=== PATIENT | female | born 1950 | race Caucasian/White ===

== ENCOUNTER 2019-07-11 06:27 | Observation (INO) | payer OTHER ==
--- NOTE | 2019-07-10 09:50 | NUR ---
Checked patient's temperature 97.6F via skin probe. Patient denies being out of the country or out of state in the last 14 days. Patient denies being around anyone who has been out of the country or the state in the last 14 days. Patient denies fever, cough or unexplained shortness of breath in the last 14 days. Patient reports admitted to hospital on 07/05/2019 for stroke, chf, and pneumonia and discharged on 05/09/2019. Patient reports she was on the rule out unit for COVID-19. Patient reports she was tested for COVID-19 during hospital stay and was negative.
[2019-07-10 10:37] LABS: BASOPHILS # (AUTO) 0.1 (0.0-0.1); BASOPHILS % 0.7 % (0.0-1.0); EOSINOPHILS # (AUTO) 0.2 (0.0-0.4); HEMATOCRIT 41.8 % (34.2-44.1); HEMOGLOBIN 13.6 g/dL (12.0-16.0); LYMPHOCYTES # (AUTO) 2.6 (1.0-3.2); LYMPHOCYTES % 34.3 % (18.0-39.1); MEAN CORPUSCULAR HEMOGLOBIN 29.4 pg (28-32); MEAN CORPUSCULAR HGB CONC 32.5 g/dL (31-35); MEAN CORPUSCULAR VOLUME 90.5 fL (81-99); MONOCYTES # (AUTO) 0.8 (0.2-0.8); MONOCYTES % 10.6 % (4.4-11.3); NEUTROPHILS % 52.3 % (38.7-80.0); PLATELET COUNT 226 x10e3/uL (140-360); RED BLOOD COUNT 4.62 x10e6/uL (3.6-5.1); RED CELL DISTRIBUTION WIDTH 12.8 % (11.7-14.4)
[2019-07-10 11:04] LABS: INR 1.11
[2019-07-10 11:16] LABS: ALANINE AMINOTRANSFERASE 34 IU/L (0-55); ALBUMIN 3.8 g/dL (3.5-5.0); ALBUMIN/GLOBULIN RATIO 1.1 (0.8-2.0); ALKALINE PHOSPHATASE 50 IU/L (40-150); ANION GAP 11.2 mmol/L (8-16); BLOOD UREA NITROGEN 15 mg/dL (7-26); BUN/CREATININE RATIO 19 (6-25); CALCIUM 9.9 mg/dL (8.4-10.2); CARBON DIOXIDE 29 mmol/L (22-29); CHLORIDE 103 mmol/L (98-107); EST GLOMERULAR FILTRATION RATE > 60 ML/MIN (60-); GLUCOSE 87 mg/dL (74-118); POTASSIUM 4.2 mmol/L (3.5-5.1); SODIUM 139 mmol/L (136-145)
[~2019-07-11] VITALS: Ht 167.6 cm; Wt 75.7 kg
[2019-07-11] VITALS (15 sets, daily range): BP systolic 119–146; BP diastolic 74–104
[~2019-07-11 06:27] MED LIST: ASPIR 8181 MG PO; AZITHROMYCIN500 MG PO; BENICAR20 MG PO; LASIX20 MG PO; LEVOTHYROXINE88 MCG PO; METOPROLOL TART50 MG PO; SIMVASTATIN40 MG PO; VITAMIN D PO
--- OUTSIDE RECORDS SUMMARY | 2019-07-11 06:34 | XMS REPORT ---
Author Author [facility] Address Unknown Phone Unavailable Care Team Providers Care Teachers Assistant Name Role Phone Unavailable Unavailable Payers Payer Name Policy Type Policy Number Effective Date Expiration Date Problems This patient has no known problems. Allergies, Adverse Reactions, Alerts Allergy Name Allergy Type Status Severity Reaction(s) Onset Date Inactive Date Treating Clinician Comments Sulfa (Sulfonamide Antibiotics) DA Active [place] 2016-05-08 00:00:00 codeine DA Active [place] 2016-05-08 00:00:00 Medications This patient has no known medications. Encounters Start Date/Time End Date/Time Encounter Type Admission Type Attending Clinicians Care Facility Care Department Encounter ID 2019-05-08 10:59:00 2019-05-08 10:59:00 Emergency E BL BL 7530 Results Test Description Test Time Test Comments Text Results Atomic Results Result Comments BASIC METABOLIC PANEL 2019-07-07 07:05:00 SODIUM (test code=NA) 140 mmol/L 134-147 POTASSIUM (test code=K) 3.8 mmol/L 3.4-5.0 CHLORIDE (test code=CL) 106 mmol/L 100-108 CARBON DIOXIDE (test code=CO2) 27 mmol/L 21-32 ANION GAP (test code=GAP) 7.0 GAP calc 4.0-15.0 GLUCOSE (test code=GLU) 90 MG/DL 70-110 BLOOD UREA NITROGEN (test code=BUN) 12 MG/DL 7-18 GLOMERULAR FILTRATION RATE (test code=GFR) >=60 max estimate estGFR >60 CREATININE (test code=CREAT) 0.6 MG/DL 0.6-1.0 CALCIUM (test code=CA) 8.8 MG/DL 8.5-10.1 [id number] 07:05:00* Test Item Value Reference Range Comments PHOSPHOROUS (test code=PHOS) 2.2 MG/DL 2.5-4.9 [id number] 07:05:00* Test Item Value Reference Range Comments MAGNESIUM (test code=MAG) 2.0 MG/DL 1.8-2.4 BASIC METABOLIC [id number] 07:01:00* Test Item Value Reference Range Comments SODIUM (test code=NA) 140 mmol/L 134-147 POTASSIUM (test code=K) 3.8 mmol/L 3.4-5.0 CHLORIDE (test code=CL) 106 mmol/L 100-108 CARBON DIOXIDE (test code=CO2) 27 mmol/L 21-32 ANION GAP (test code=GAP) 7.0 GAP calc 4.0-15.0 GLUCOSE (test code=GLU) 90 MG/DL 70-110 BLOOD UREA NITROGEN (test code=BUN) 12 MG/DL 7-18 GLOMERULAR FILTRATION RATE (test code=GFR) estGFR >60 CREATININE (test code=CREAT) MG/DL 0.6-1.0 CALCIUM (test code=CA) 8.8 MG/DL 8.5-10.1 [id number] 07:01:00* Test Item Value Reference Range Comments PHOSPHOROUS (test code=PHOS) MG/DL 2.5-4.9 [id number] 07:01:00* Test Item Value Reference Range Comments MAGNESIUM (test code=MAG) 2.0 MG/DL 1.8-2.4 THYROID STIMULATING [id number] 05:19:00* Test Item Value Reference Range Comments THYROID STIMULATING HORMONE (test code=TSH) 2.150 mcIU/ML 0.340-4.820 - CT ANGIO [id number] 03:08:00 Name: WAYNE GOINS [facility] : 1950 Age/S: 68 / F [address] [address] Unit #: [id number] Loc: [place] [address] Phys: Brandie Lares MD Acct: [id number] Dis Date: Status: ADM IN PHONE #: [phone] Exam Date: 07/06/2019 0230 FAX #: Reason: cva EXAMS: CPT: [id number] CT ANGIO NECK [address]1867 EXAM: - CT ANGIO HEAD, - CT ANGIO NECK LOCATION: H61 CLINICAL HISTORY/INDICATION: CVA. TECHNIQUE: Helical CT acquisition of the upper chest, neck and head were obtained utilizing the CTA protocol. 3D MIPS image series were created on an independent workstation using maximum intensity projection technique. This examination was performed according to our departmental dose optimization program, which includes automated exposure control, adjustment of the mA and/or kV according to patient size, and/or use of iterative reconstruction technique. COMPARISON: Carotid artery ultrasound 07/05/2019. Brain MRI 07/05/2019. FINDINGS: CTA NECK: Any reported ICA stenosis directly references the distal internal carotid artery diameter as the denominator for stenosis measurement (NASCET criteria). Aortic Arch: Three-vessel aortic arch with patent origins of the great vessels. Right carotid artery: The right common carotid artery is unremarkable. There is mild calcified and noncalcified plaque in the proximal right ICA at the origin with approximately 25% stenosis. Left carotid artery: The left common carotid artery is unremarkable. There is mild calcified and noncalcified plaque in the proximal ICA at the origin without significant stenosis. Vertebral arteries: The bilateral vertebral arteries are patent without significant narrowing. Nonv ascular findings: There are bilateral pleural effusions present. There is bilateral pulmonary edema. Mild paraseptal emphysema and bilateral lung apices. PAGE 1 Signed Report (CONT INUED) Name: WAYNE GOINS [facility] : 1950 Age/S: 68 / F [id number] [address] Unit #: [id number] Loc: [place] [address] Phys: Brandie Johnson MD Acct: [id number] Dis Date: Status: ADM IN [facility] NE #: [phone] Exam Date: 07/06/2019 0230 FAX #: Reason: cva EXAM S: CPT: [id number] CT ANG IO NECK [address]242 <Continued> CTA HEAD: Internal carotid arteries: The bilateral internal carotid arteries are patent without evidence of stenosis, dissection or aneurysm. Middle cerebral arteries: The bilateral M1 and M2 segments are patent without evidence of stenosis, vasospasm or aneurysm. Anterior cerebral arteries: The bilateral anterior cerebral arteries are patent without evidence of stenosis, vasospasm or aneurysm. Vertebral and basilar arteries: The bilateral V4 segments, vert ebrobasilar confluence and basilar artery are patent without significant n arrowing. The bilateral posterior inferior cerebellar arteries are patent . Posterior cerebral arteries: The bilateral posterior cerebral ar teries are patent without significant stenosis, vasospasm or aneurysm. Major dural venous sinuses:Patent without thrombus. NON VASCULAR FINDINGS: There is mild right ethmoid sinus and right maxillary s inus mucosal thickening. IMPRESSION: 1. No intracranial large vessel occlusion or stenosis. 2. Mild atheroscle rotic disease in the bilateral proximal ICA at the origins with mild nitesh nosis on the right (25%) and no significant stenosis on the left. 3. No vertebral or basilar artery plaque or stenosis. 4. Pulmonary e nupur and bilateral pleural effusions. at 0308 Reported and signed by : Guero Shukla M.D. CC: Brandie Lares MD; Suad Winslow MD; Robert Manzanares MD Technologist:Rosalinda Umana, RT(R)(CT); CTDI: DLP: Trnscb Date/Time: 07/06/2019 (0308) t.SDR.TH15 Orig Print D/T: S: 07/06/2019 (310) PAGE 2 Signed Report - CT ANGIO [id number] 03:08:00 Name: WAYNE GOINS [facility] : 1950 Age/S: 68 / F [address] [address] Unit #: [id number] Loc: [place] [address] Phys: Brandie Lares MD Acct: [id number] Dis Date: Status: ADM IN PHONE #: [phone] Exam Date: 07/06/2019 0215 FAX #: Reason: cva EXAMS: CPT: [id number] CT ANGIO HEAD [address]25 EXAM: - CT ANGIO HEAD, - CT ANGIO NECK LOCATION: H61 CLINICAL HISTORY/INDICATION: CVA. TECHNIQUE: Helical CT acquisition of the upper chest, neck and head were obtained utilizing the CTA protocol. 3D MIPS image series were created on an independent workstation using maximum intensity projection technique. This examination was performed according to our departmental dose optimization program, which includes automated exposure control, adjustment of the mA and/or kV according to patient size, and/or use of iterative reconstruction technique. COMPARISON: Carotid artery ultrasound 07/05/2019. Brain MRI 07/05/2019. FINDINGS: CTA NECK: Any reported ICA stenosis directly references the distal internal carotid artery diameter as the denominator for sten osis measurement (NASCET criteria). Aortic Arch: Three-vesse l aortic arch with patent origins of the great vessels. Righ t carotid artery: The right common carotid artery is unremarkable. There is mild calcified and noncalcified plaque in the proximal right ICA at the origin with approximately 25% stenosis. Left carotid artery: The left common carotid artery is unremarkable. There is mild tavia cified and noncalcified plaque in the proximal ICA at the origin without s ignificant stenosis. Vertebral arteries: The bilateral verte bral arteries are patent without significant narrowing. Nonv ascular findings: There are bilateral pleural effusions present. There is bilateral pulmonary edema. Mild paraseptal emphysema and bilateral lung apices. PAGE 1 Signed Report (CONT INUED) Name: WAYNE GOINS [facility] : 1950 Age/S: 68 / F [address] [address] Unit #: [id number] Loc: [place] [address] Phys: Brandie Johnson MD Acct: [id number] Dis Date: Status: ADM IN [facility] NE #: [phone] Exam Date: 07/06/2019 0215 FAX #: Reason: cva EXAM S: CPT: [id number] CT ANG IO HEAD [address] <Continued> CTA HEAD: Internal carotid arteries: The bilateral internal carotid arteries are patent without evidence of stenosis, dissection or aneurysm. Middle cerebral arteries: The bilateral M1 and M2 segments are patent without evidence of stenosis, vasospasm or aneurysm. Anterior cerebral arteries: The bilateral anterior cerebral arteries are patent without evidence of stenosis, vasospasm or aneurysm. Vertebral and basilar arteries: The bilateral V4 segments, vert ebrobasilar confluence and basilar artery are patent without significant n arrowing. The bilateral posterior inferior cerebellar arteries are patent . Posterior cerebral arteries: The bilateral posterior cerebral ar teries are patent without significant stenosis, vasospasm or aneurysm. Major dural venous sinuses:Patent without thrombus. NON VASCULAR FINDINGS: There is mild right ethmoid sinus and right maxillary s inus mucosal thickening. IMPRESSION: 1. No intracranial large vessel occlusion or stenosis. 2. Mild atheroscle rotic disease in the bilateral proximal ICA at the origins with mild nitesh nosis on the right (25%) and no significant stenosis on the left. 3. No vertebral or basilar artery plaque or stenosis. 4. Pulmonary e nupur and bilateral pleural effusions. at 0308 Reported and signed by : Guero Shukla M.D. CC: Brandie Larse MD; Suad Winslow MD; Robert Manzanares MD Technologist:Rosalinda Umana, RT(R)(CT); CTDI: DLP: Trnscb Date/Time: 07/06/2019 (0308) t.RAJR.TH15 Orig Print D/T: S: 07/06/2019 (031) PAGE 2 Signed Report Novel Coronavirus 20:56:00* Test Item Value Reference Range Comments Novel Coronavirus 2019 Inhouse (test code=LSEAQ96NA) Negative Negative Positive results are indicative of the presence oiSMXR-HxB-0 RNA, clinical correlation with patient historyand other diagnostic information is necessary to determinepatient infection status. Positive results do not rule outbacterial infection or co-infection with other viruses. Negative results do not preclude SARS-CoV-2 infection andshould not be used as the sole basis for patient managementdecisions. Negative results must be combined with otherclinical observations, patient history, and epidemiologicalinformation. Detection of SARS-CoV-2 RNA may be affected bysample collection methods, storage conditions, and/or stageof infection. Viral RNA mutations, vaccinations, antiviraltherapeutics, antibiotics, chemotherapeutic orimmunosuppressant drugs have not been evaluated for effectson detection. Results are for the identification of SARS-CoV-2 RNA usingthe [employer] M2000 System under the FDA Emergency UseAuthorization. The testing is performed by personneltrained in the procedures for the Anderson M2000 moleculardiagnostic SARS-CoV-2 assay in vitro. Testing Criteria: OtherOther: cough, unexplained hypoxiaNovel Coronavirus 20182019-07-05 20:56:00* Test Item Value Reference Range Comments Novel Coronavirus 2019 Inhouse (test code=[id number]) Negative Negative Positive results are indicative of the presence zgZCBN-WlX-6 RNA, clinical correlation with patient historyand other diagnostic information is necessary to determinepatient infection status. Positive results do not rule outbacterial infection or co-infection with other viruses. Negative results do not preclude SARS-CoV-2 infection andshould not be used as the sole basis for patient managementdecisions. Negative results must be combined with otherclinical observations, patient history, and epidemiologicalinformation. Detection of SARS-CoV-2 RNA may be affected bysample collection methods, storage conditions, and/or stageof infection. Viral RNA mutations, vaccinations, antiviraltherapeutics, antibiotics, chemotherapeutic orimmunosuppressant drugs have not been evaluated for effectson detection. Results are for the identification of SARS-CoV-2 RNA usingthe [employer]000 System under the FDA Emergency UseAuthorization. The testing is performed by personneltrained in the procedures for the [employer] M2000 moleculardiagnostic SARS-CoV-2 assay in vitro. Testing Criteria: OtherOther: cough, unexplained hypoxia- DUP EXTRACRANIAL ANA 2019-07-05 18:54:00 Name: WAYNE GOINS [facility] : 1950 Age/S: 68 / F [address] [address] Unit #: [id number] Loc: [place] [address] Phys: Brandie Lares MD Acct: [id number] Dis Date: Status: ADM IN PHONE #: [phone] Exam Date: 07/05/2019 1820 FAX #: Reason: BILATERAL CAROTIDS EXAMS: CPT: [id number] DUP EXTRACRANIAL ANA 62714 Carotid Doppler ultrasound History: BILATERAL CAROTIDS Comparison: None at this time Location: R16 Carotid Doppler ultrasound with color flow was performed of the common carotid and internal carotid and external carotid arteries. Measurement of the distal internal carotid artery diameter is used as the denominator for stenosis measurement, if direct measurements were obtained. The internal carotid peak systolic velocity on the right is 98 cm/s. The internal carotid peak systolic velocity on the left is 83 cm/s. The internal carotid to common carotid artery peak systolic velocity ratio on the right is 1.5. The internal carotid to common carotid artery peak systolic velocity ratio on the left is 1.0. There is antegrade flow in both vertebral arteries. Impression: According to the internal carotid artery peak systolic velocities and the internal carotid to common carotid artery peak systolic velocity ratios, there is no hemodynamically significant stenosis. at 1854 Reported and signed by: Demetris Umana M.D. CC: Brandie Lares MD; Suad Winslow MD; Robert Manzanares MD Technologist: Katelynn Tanner Trnscb Date/Time: 07/05/2019 (1853) RominaPMT PAGE 1 Signed Report Name: WAYNE GOINS [facility] : 1950 Age/S: 68 / F [address] [address] Unit #: [id number] Loc: [place] [address] Phys: Jeremi Lares MD Acct: [id number] Dis Date: Status: ADM IN PHONE #: [phone] Exam Date: 07/05/2019 1820 FAX #: Reason: BILATERAL CAROTIDS EXAMS: CPT: [id number] DUP EXTRA CRANIAL ANA 86444 <Continued> Orig Print D/T: S: 07/05/2019 (1856) Probe: PAGE 2 Signed Report - MRI BRAIN W/O [id number] 16:23:00 FAX: Brandie Ware MD Camps: PM St: ADM FAX: Suad Watts [phone] FAX: Robert Manzanares MD [phone] Name: WAYNE GOINS [facility] : 1950 Age/S: 68/F [address] [address] Unit #: [id number] Loc: [address] [place] [address] Phys: Brandie Hardy MD Acct: [id number] Dis Date: Status: ADM IN PH ONE #: [phone] Exam Date: 07/05/2019 1600 FA X #: Reason: CVA vs TIA EXAMS: CPT: [id number] MRI BRAIN W/O CONTRAST 62976 R16 - MRI BRAIN W/O CONTRAST HISTORY: CVA vs TIA TECHNIQUE: Multiplanar multisequence MR images of the brain were obtained without intravenous contrast. COMPARISON: Head CT 07/05/2019 FINDINGS: Postoperative restricted diffusion associated wi th FLAIR hyperintensity and multiple vascular territories of the right cerebellar hemisphere. There is no mass, mass effect or abnormal extra- axial fluid collection. The ventricles are normal in size, shape, and position. There are normal signal voids in the larger intrac ranial vessels. The paranasal sinuses and mastoid air cells are pr edominantly clear. The marrow signal pattern is within normal limits. 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 Consider further evaluation with h ead and neck CTA. Findings reported to nurse Veronique Flower on 06/24 4:[address] Quan Austin. *FOR INTERNAL CODING PURPOSES ONLY RESULT CODE: CVR at 16 23 Reported and signed by: Quan Austin M.D. PAGE 1 Signed Report (CONTINUED) FAX: Brandie Ware MD Camps: PM St: ADM FAX: Suad Watts [phone] FAX: Robert Manzanares MD [phone] - Name: WAYNE GOINS [facility] : 1950 Age/S: 68/F [address] [address] Unit #: [id number] Loc: [address] [place] [address] Phys: Reynaldo Lares MD Acct: [id number] Dis Date: Status: ADM IN PHONE #: Exam Date: 07/05/2019 1600 FAX #: Reason: CVA vs TIA EXAMS: CPT: [id number] MRI BRAIN W/O CONTRAST 24712 <Continued> CC: Brandie Lares MD; Suad Winslow MD; Robert Manzanares MD Technologist: Boston Mujica RT(R)(MR) Transcribed Date/Time/By: 07/05/2019 (7380) :[email or web address] Orig Print D/T: S: 07/05/2019 (7743) PAGE 2 Signed Report UA RFLX MICR CULT IF INDICATED 2019-07-05 10:56:00* Test Item Value Reference Range Comments UA COLOR (test code=COLU) YELLOW discript YEL/STRAW UA APPEARANCE (test code=APPU) CLEAR discript CLEAR UA GLUCOSE DIPSTICK (test code=DGLUU) NEGATIVE mg/dL NEG UA BILIRUBIN DIPSTICK (test code=BILU) NEGATIVE mg/dL NEG UA KETONE DIPSTICK (test code=KETU) NEGATIVE mg/dL NEG UA SPECIFIC GRAVITY (test code=SGU) 1.020 SG 1.005-1.030 UA BLOOD DIPSTICK (test code=IVETTE) NEGATIVE mg/DL NEG UA PH DIPSTICK (test code=YOGI) 6.0 pH UNITS 5.0-7.0 UA PROTEIN DIPSTICK (test code=PROU) NEGATIVE mg/dL NEG UA UROBILINIOGEN DIPSTICK (test code=URO) 0.2 mg/dL <2.0 UA NITRITE DIPSTICK (test code=NAVJOT) NEGATIVE SCREEN NEG UA LEUKOCYTE ESTERASE DIPSTICK (test code=LEUU) NEGATIVE Leuk/mcL NEGATIVE SOURCE OF URINE: CLEAN CATCHIndication for culture: Delirium-if no other src UA RFLX MICR CULT IF [id number] 10:55:00* Test Item Value Reference Range Comments UA COLOR (test code=COLU) YELLOW discript YEL/STRAW UA APPEARANCE (test code=APPU) CLEAR discript CLEAR UA GLUCOSE DIPSTICK (test code=DGLUU) NEGATIVE mg/dL NEG UA BILIRUBIN DIPSTICK (test code=BILU) NEGATIVE mg/dL NEG UA KETONE DIPSTICK (test code=KETU) NEGATIVE mg/dL NEG UA SPECIFIC GRAVITY (test code=SGU) 1.020 SG 1.005-1.030 UA BLOOD DIPSTICK (test code=IVETTE) NEGATIVE mg/DL NEG UA PH DIPSTICK (test code=YOGI) 6.0 pH UNITS 5.0-7.0 UA PROTEIN DIPSTICK (test code=PROU) NEGATIVE mg/dL NEG UA UROBILINIOGEN DIPSTICK (test code=URO) 0.2 mg/dL <2.0 UA NITRITE DIPSTICK (test code=NAVJOT) NEGATIVE SCREEN NEG UA LEUKOCYTE ESTERASE DIPSTICK (test code=LEUU) NEGATIVE Leuk/mcL NEGATIVE UA CULTURE NEEDED? (test code=UACULT) Criteria Culture CHK SOURCE OF URINE: CLEAN CATCHIndication for culture: Delirium-if no other src LIPID PROFILE (CORONARY RISK)2019-07-05 07:03:00* Test Item Value Reference Range Comments TRIGLYCERIDES (test code=TRIG) 79 MG/DL 0-150 CHOLESTEROL (test code=CHOL) 182 MG/DL 133-200 CHOLESTEROL/HDL RATIO (test code=CHOLHDL) 3.08 RATIO >0 HDL CHOLESTEROL (test code=HDL) 59 MG/DL 40-59 NON-HDL CHOLESTEROL (test code=NHDL) 123 mg/dL <130 LIPOPROTEIN LDL (test code=LDL) 114 MG/DL 0-129 LDL/HDL (test code=LDL/HDL) 1.93 Ratio 1.48-3.22 Avg HEPATIC FUNCTION [id number] 07:03:00* Test Item Value Reference Range Comments TOTAL PROTEIN (test code=PROT) 6.9 G/DL 6.4-8.2 ALBUMIN (test code=ALB) 3.4 G/DL 3.4-5.0 BILIRUBIN TOTAL (test code=BILT) 0.70 MG/DL 0.2-1.2 BILIRUBIN DIRECT (test code=BILD) 0.20 MG/DL 0.00-0.30 BILIRUBIN INDIRECT (test code=BILIND) 0.50 MG/DL 0.2-1.2 SGOT/AST (test code=AST) 77 Unit/L 15-37 SGPT/ALT (test code=ALT) 112 Unit/L 12-78 ALKALINE PHOSPHATASE TOTAL (test code=ALKP) 52 Unit/L 45-117 NT PRO-BRAIN NATRIURETIC [id number] 07:03:00* Test Item Value Reference Range Comments NT PRO-BRAIN NATRIURETIC PEPTI (test code=PROBNP) 1503 PG/ML 0-100 GLYCOSYLATED HEMOGLOBIN [id number] 07:03:00* Test Item Value Reference Range Comments GLYCOSYLATED HEMOGLOBIN (HA1C) (test code=GLYHGB) 5.5 % A1C 0.0-5.7 ESTIMATED AVERAGE GLUCOSE (test code=EAG) 111 MG/DLest - CTA CHEST FOR [id number] 02:30:00 Name: WAYNE GOINS [facility] : 1950 Age/S: 68 / F [address] [address] Unit #: [id number] Loc: [place] [address] Phys: Robert Manzanares MD Acct: [id number] Dis Date: Status: ADM IN PHONE #: [phone] Exam Date: 07/05/2019 020 FAX #: Reason: HYPOXIA, HX OF AFIB, EVAL FOR PE EXAMS: CPT: [id number] [place] [address] Exam: CT thorax PE protocol. Location: H 12 History: HYPOXIA, HX OF AFIB, EVAL FOR PE Technique: Enhanced spiral slices were taken from the apices of the lungs, through the upper abdomen utilizing a pulmonary embolism protocol. Multiplanar, MIP and/or 3D reformations were performed. One or more of the following dose reduction techniques were used: Automated exposure control, adjustment of the mA and/or kV according to patient size, and/or utilization of iterative reconstruction technique. Findings: No filling defects are seen in the main pulmonary arteries. Pulmonary venous congestion and mild interstitial edema are present. The lungs are clear. Trace bilateral effusions are seen. No mass or nodule is seen. The mediastinum and the pulmonary kasey are normal. No lymphadenopathy is present. The heart size is enlarged with coronary artery calcifications noted. No pericardial effusion is seen. Thevisualized upper abdominal organs are unremarkable. Previous bariatric surgery is noted. No incidental thyroid nodules are noted. Impression: 1. Negative for pulmonary aneurysm. 2. CHF. 3. Cardiomegaly with CAD. Electronically Sig kasey by Alysha Osman on 07/05/2019 at 0230 Reported and signed by: Mendoza Osman M.D. CC: Kevin Miller MD; Suad Winslow MD; Robert Manzanares MD; Yesenia DUNAWAY Technologis t:Jorge Luis Bonner, RT(R); Escobar Estrada, CTDI: DLP: Trnscb Date/Time: 01/2020 (0230) t.SDR.FC Orig Print D/T: S: 07/05/2019 (0 233) PAGE 1 Signed Report BASIC METABOLIC [id number] 01:19:00* Test Item Value Reference Range Comments SODIUM (test code=NA) 139 mmol/L 134-147 POTASSIUM (test code=K) 3.6 mmol/L 3.4-5.0 CHLORIDE (test code=CL) 106 mmol/L 100-108 CARBON DIOXIDE (test code=CO2) 25 mmol/L 21-32 ANION GAP (test code=GAP) 8.0 GAP calc 4.0-15.0 GLUCOSE (test code=GLU) 126 MG/DL 70-110 BLOOD UREA NITROGEN (test code=BUN) 23 MG/DL 7-18 GLOMERULAR FILTRATION RATE (test code=GFR) >=60 max estimate estGFR >60 CREATININE (test code=CREAT) 0.8 MG/DL 0.6-1.0 CALCIUM (test code=CA) 8.9 MG/DL 8.5-10.1 PROTHROMBIN [id number] 01:19:00* Test Item Value Reference Range Comments PT PATIENT (test code=PTP) 13.9 SECONDS 9.3-12.9 INTERNATIONAL NORMAL RATIO (test code=INR) 1.23 INR Unit 0.8-1.2 THROMBOPLASTIN TIME [id number] 01:19:00* Test Item Value Reference Range Comments THROMBOPLASTIN TIME PARTIAL (test code=PTT) 27.2 SECONDS 26-35 CBC W/O [id number] 00:57:00* Test Item Value Reference Range Comments WHITE BLOOD CELL (test code=WBC) 8.3 K/mm3 3.5-11.0 RED BLOOD CELL (test code=RBC) 4.19 M/mm3 4.70-6.10 HEMOGLOBIN (test code=HGB) 12.1 G/DL 10.4-14.9 HEMATOCRIT (test code=HCT) 38.1 % 31.5-44.1 MEAN CELL VOLUME (test code=MCV) 90.9 Fl 84.5-98.6 MEAN CELL HGB (test code=MCH) 28.9 pg 27.0-34.2 MEAN CELL HGB CONCETRATION (test code=MCHC) 31.8 G/DL 31.5-34.0 RED CELL DISTRIBUTION WIDTH (test code=RDW) 13.4 SD 11.5-14.5 PLATELET COUNT (test code=PLT) 166.0 K/mm3 150-450 MEAN PLATELET VOLUME (test code=MPV) 12.40 fL 7.0-10.5 - CT HEAD/BRAIN W/O [id number] 00:51:00 Name: LAUREN GOINSH COLTON [facility] : 1950 Age/S: 68 / F [address] [facility] Unit #: [id number] Loc: [place] [address] Phys: Kevin Miller MD Acct: [id number] Dis Date: Status: REG PHONE #: [phone] Exam Date: 07/05/2019 0042 FAX #: Reason: Code Stroke EXAMS: CPT: [id number] CT HEAD/BRAIN W/O CONT 35936 Exam: CT head without contrast. Location: H 12 History: Code Stroke Technique: Unenhanced spiral slices were taken from the base of the skull, through the vertex. One or more of the following dose reduction techniques were used: Automated exposure control, adjustment of the mA and/or kV according to patient size, and/or utilization of iterative reconstruction technique. Findings: No acute intracranial abnormality is identified. The brain parenchyma and the CSF spaces are unremarkable. No mass, midline shift, hemorrhage, hydrocephalus or edema is seen. The visualized paranasal sinuses are clear. The mastoid air cells are well pneumatized. The bony calvarium is intact. Impression: 1. No acute intracranial abnormality. 2. Otherwise unremarkable exam. 3. The call service notified Dr. Miller at 1246 hours. FOR INTERNAL CODING PURPOSES ONLY RESULT CODE: CVR at 0051 Reported and signed by: Mendoza Osman M.D. CC: Kevin Miller MD; Suad Winslow MD Technologist:Jorge Luis Bonner, RT(R); Escobar Estrada, CTDI: DLP: Trnscb Date/Time: 07/05/2019 (50) t.SDR.F C Orig Print D/T: S: 07/05/2019 (53) PAGE 1 Signed Report - XR CHEST 1 V 2019-07-05 00:48:00 Name: WAYNE GOINS [facility] : 1950 Age/S: 68 / F [id number] Unit #: [id number] Loc: [place] [address] Phys: Kevin Miller MD Acct: [id number] Dis Date: Status: REG ER PHONE #: [phone] Exam Date: 07/05/201943 FAX #: Reason: Code Stroke EXAMS: CPT: [id number] XR CHEST 1 V 75036 Fluoro Time: DAP (Gy m2): Air Kerma (mGy): Chest Radiograph History: Code Stroke Comparison: None at this time Location: R16 A single frontal view of the chest is submitted. The heart is within normal limits in size. There is mild pulmonary vascular congestion. There are minimal patchy opacities in the lung bases bilaterally. The bones appear unremarkable. IMPRESSION: There is mild pulmonary vascular congestion. There are minimal patchy opacities in the lung bases bilaterally. This could be due to atelectasis or pneumonia. at 0048 Reported and signed by: Demetris Umana M.D. CC: Kevin Miller MD; Suad Winslow MD PAGE 1 Signed Report Name: WAYNE GOINS [facility] : 1950 Age/S: 68 / F [id number] Unit #: [id number] Loc: [place] [address] Phys: Kevin Miller MD Acct: [id number] Dis Date: Status: REG ER PHONE #: [phone] Exam Date: 07/05/2019 0044 FAX #: Reason: Code Stroke EXAMS: CPT: [id number] XR CHEST 1 V 65228 Fluoro Time: DAP (Gy m2): Air Kerma (mGy): <Continued> Technologist: Jorge Luis Bonner, RT(R); Escobar Estrada, RT(R)(CT) Trnscb Date/Time: 07/05/2019 (004) t.SDR.PMT Orig Print D/T: S: 07/05/2019 (0051) PAGE 2 Signed Report - CT ANGIO [id number] 15:48:00 Name: WAYNE GOINS [facility] : 1950 Age/S: 68 / F [address] Unit #: [id number] Loc: [place] [address] Phys: Francisco Redd Si, MD Acct: [id number] Di s Date: Status: REG CLI PHONE #: Exam Date: 06/13/2019 1529 FAX #: Reason: AFIB. EXAMS: CPT CODE: [id number] CT ANGIO CHEST [address] angiogram with IV contrast (Pulmonary Vein Mapping) . MEDICAL HISTORY: Atrial fibr illation. Comparison studies: None. Administered con trast: 100 cc of Isovue 300 intravenously. FINDINGS: Contiguous 2 mm axial images of the chest were obtained with IV contrast using the CT a ngiogram protocol with a 64-slice multidetector scanner. Images were obtai kasey from the thoracic inlet through below the level of the adrenal glands. Particular attention was given to the left atrium and pulmonary veins. The acquired data was used to create multiplanar reformats and volume render ing reconstructions with the use of the work station. DLP: 903 mGy-cm Pulmonary vein measurements (measure plane obtained 5 mm distal to vessel ostia): Right superior pulmonary vein (RSPV): 14 mm. Right inferior pulmonary vein (RIPV): 18 mm. Left superior pulmonary vein (LSPV): 17 mm. Left inferior pulmonary vein (LIPV): 18 mm. Postoperative changes at the gastroesophageal junction partially image d.. IMPRESSION: Pulmonary vein measurements as detailed above. Please note that vessels bifurcating at a dis tance equal to or greater than 5 mm from the expected outer margin of th e left atrium are considered to have a common ostium. Elect ronically Signed by Alysha Fay on 06/13/2019 at 1548 Reported and signed by: Tommie Fay M.D. CC: Francisco Pringle MD Technologist:RT Skyla(R) CTDI: DLP: Trnscb Date/Time: 06/13/2019 (1548) Fermin.[email or web address] Orig Print D/T: S: 06/13/2019 (3747) PAGE 1 Signed Report
--- OUTSIDE RECORDS SUMMARY | 2019-07-11 06:34 | XMS REPORT | Summary of Care ---
Author Author [facility] - Health Organization [facility] - Health Address Unknown Phone Unavailable Care Team Providers Care Adult Basic Education Teacher Name Role Phone Doctor Unassigned, [place] PCP Unavailable Reason for Visit * Reason Comments Appointment Encounter Details Care Team Description Date Type Department Fred Thomason DO [address] [place] [address] Appointment 06/13/2019 Telephone [facility] - Insulation Mechanic, [address] [address] Allergies Comments Active Allergy Reactions Severity Noted Date Codeine Unknown - See 06/11/2019 comments Sulfa (Sulfonamide Unknown - See 06/11/2019 Antibiotics) comments documented as of this encounter (statuses as of 06/13/2019) Medications No known medicationsdocumented as of this encounter (statuses as of 06/13/2019) Active Problems Not on filedocumented as of this encounter (statuses as of 06/13/2019) Social History Date Tobacco Use Types Packs/Day Years Used Never Assessed Sex Assigned at Date Recorded Not on file Industry Job Start Date Occupation Not on file Not on file Not on file Travel End Travel History Travel Start No recent travel history available. documented as of this encounter Last Filed Vital Signs Not on filedocumented in this encounter Plan of Treatment Care Team Description Date Type Specialty Loulou Rosales RN [address] [place] [address] 06/11/2019 Anesthesia Cardiac Electrophysiology Event Fred Thomason DO [address] [place] [address] 1, Clc Sub Plant Manager Nurse, [facility] Echo Provider, [facility] Cardiac Area, [facility] 06/16/2019 Appointment [place] [address] [facility] [address] [place] [address] [phone] 1, Clc Cardiac Proc Room Anesthesia, [facility] Ep Lab 06/17/2019 Hospital Cardiac Electrophysiology Encounter Health Maintenance Due Date Last Done Comments HEPATITIS C (HCV) SCREEN 1950 DTaP,Tdap,and Td Vaccines 11/26/1962 (1 - Tdap) Breast Cancer Screening 1991 (MAMMOGRAM) COLONOSCOPY 11/26/2001 Zoster Recombinant 11/26/2001 Vaccine (SHINGRIX) (1 of 2) Medicare Wellness Visit 11/26/2016 Osteoporosis Screening 11/26/2016 PNEUMOCOCCAL VACCINES 65+ 11/26/2016 (1 of 2 - PCV13) INFLUENZA VACCINE (#1) 2018 12/06/2012, 12/08/2008 documented as of this encounter Results Not on filedocumented in this encounter Insurance Type Payer Benefit Subscriber ID Effective Phone Address Plan / Dates Group HMO/PPO/POS [facility] [id number] 2019-[employer] resent PPO documented as of this encounter
--- OUTSIDE RECORDS SUMMARY | 2019-07-11 06:34 | XMS REPORT | Summary of Care ---
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) Status: Active Medications Name Dates Details Levothyroxine Sodium 100 MCG Oral Tablet Active Valsartan-hydroCHLOROthiazide 320-25 MG Oral Tablet * Refills: 0 Active Vitamin D 1000 UNIT CAPS * Refills: 0 Active Metoprolol Tartrate 50 MG Oral Tablet * Refills: 0 Active Allergies and Adverse Reactions Name Dates Details codeine (Allergy) Status: Active Sulfa Drugs (Allergy) Status: Active Past Medical History Name Dates Details History of arthritis (V13.4, Z87.39) Status: Resolved History of atrial fibrillation (V12.59, Z86.79) Status: Resolved History of gallbladder disease (V12.79, Z87.19) Status: Resolved Procedures Procedure Dates Details History of Gallbladder surgery Completed History of Gastric bypass surgery Completed History of Rotator cuff repair Completed Immunization Name Dates Details Immunizations not documented Family History Name Dates Details Family history of tuberculosis (V18.8, Z83.1) Status: Active Family history of Heart trouble (429.9, I51.9) Status: Active Family history of hypertension (V17.49, Z82.49) Status: Active Family history of arthritis (V17.7, Z82.61) Status: Active Family history of malignant neoplasm (V16.9, Z80.9) Status: Active Name Dates Details Family history of tuberculosis (V18.8, Z83.1) Status: Active Family history of Heart trouble (429.9, I51.9) Status: Active Family history of hypertension (V17.49, Z82.49) Status: Active Family history of arthritis (V17.7, Z82.61) Status: Active Family history of malignant neoplasm (V16.9, Z80.9) Status: Active Social History Name Dates Details Tobacco smoking consumption unknown (finding) Vital Signs Date Test Result Details No Known Vitals to report Results Date Description Value Details Results not documented Plan of Care Name Dates Details Planned Observations Planned Goals not documented Instructions Name Dates Details Instructions not documented Encounters Appointment; LIDIA SHORT Encounter Diagnosis: Problem not documented On: 29-May-2019 14:30
--- OUTSIDE RECORDS SUMMARY | 2019-07-11 06:34 | XMS REPORT | Summary of Care ---
Author Author [facility] - Health Organization [facility] - Health Address Unknown Phone Unavailable Care Team Providers Care Salvage Clerk Name Role Phone Doctor Unassigned, [place] PCP Unavailable Reason for Visit * Reason Comments LAB Encounter Details Care Team Description Date [place] [address] [facility] [address] [place] [address] Lab, [facility] - Atypical atrial flutter (Primary Dx); Longstanding persistent atrial fibrillation 06/13/2019 Quality Assurance Inspector [facility] Clinical Visit Laboratory, [address], [address] [place] [address] Allergies Comments Active Allergy Reactions Severity [...] Description Date Type Specialty Loulou Rosales RN [address] [place] [address] 06/11/2019 Anesthesia Cardiac Electrophysiology Event Fred Thomason DO [address] [place] [address] 1, Clc Cost Control Supervisor Nurse, Clc Echo Provider, Clc Cardiac Area, [facility] Holding 06/16/2019 Appointment [place] [address] [place] [address] [phone] 1, Clc Cardiac Proc Room Anesthesia, Clc Ep Lab 06/17/2019 Hospital Cardiac Electrophysiology Encounter Order Schedule Name Type Priority Associated Diagnoses Expected: 06/13/2019, Expires: 06/12/2020 CBC WITH DIFF LAB Routine Atypical atrial flutter Longstanding persistent atrial fibrillation Expected: 06/13/2019, Expires: 06/12/2020 BASIC METABOLIC PANEL LAB Routine Atypical atrial flutter (NA, K, CL, CO2, GLUCOSE, Longstanding persistent BUN, CREATININE, CA) atrial fibrillation Expected: 06/13/2019, Expires: 06/12/2020 PROTHROMBIN TIME / INR LAB Routine Atypical atrial flutter Longstanding persistent atrial fibrillation Expected: 06/13/2019, Expires: 06/12/2020 aPTT LAB Routine Atypical atrial flutter Longstanding persistent atrial fibrillation Expected: 06/13/2019, Expires: 06/12/2020 Type and Screen - LAB Routine Atypical atrial flutter Longstanding persistent atrial fibrillation Ordered: 06/13/2019 CBC WITH DIFFERENTIAL LAB Routine Atypical atrial flutter Longstanding persistent atrial fibrillation Health Maintenance Due Date Last Done Comments [...] Results Not on filedocumented in this encounter Visit Diagnoses Diagnosis Atypical atrial flutter - Primary Atrial flutter Longstanding persistent atrial fibrillation documented in this encounter Insurance Type Payer Benefit Subscriber ID Effective Phone Address Plan / Dates Group HMO/PPO/POS [facility] [id number] 2019[facility] documented as of this encounter
[2019-07-11] MEDS ORDERED: MIDAZOLAM HCL 2 MG/2 ML VIAL ONE ×2 (07:29→08:51)
[2019-07-11] MEDS ORDERED: IOPAMIDOL 370 MG/ML 200 ML INFUS..BTL INJ ONE ×3 (07:29→09:12)
[2019-07-11] MEDS ORDERED: FENTANYL CITRATE/PF 100MCG/2 ML INJ ONE (07:29)
[2019-07-11] MEDS ORDERED: VERAPAMIL HCL 2.5 MG/ML 2 ML VIAL ONE (07:29)
[2019-07-11] MEDS ORDERED: HEPARIN SOD (PORCINE) 1000 UNIT/ML 30ML ONE (07:29)
[2019-07-11] MEDS ORDERED: HEPARIN SOD/SOD CHLORIDE 2,000 ML ONE (07:29)
[2019-07-11] MEDS ORDERED: LIDOCAINE HCL 2% LOCAL 20 ML VIAL ONE (07:29)
[2019-07-11] MEDS ORDERED: NITROGLYCERIN/D5W 200 MCG/ML 250 ML ONE (07:30)
[2019-07-11] MEDS ORDERED: SODIUM CHLORIDE 0.9% 1000ML 1,000 ML ONE (07:30)
[2019-07-11] MEDS ORDERED: TICAGRELOR 90 MG TABLET ONE (09:21)
[2019-07-11] MEDS ORDERED: ASPIRIN 325 MG TAB ONE (09:21)
--- NOTE | 2019-07-11 09:45 | NUR ---
0945 am RECEIVING NOTE [employer] DEPT............................................................... Bedside report received from CLEMENT Barcenas. Identifierx2. Alert oriented and appropriate, PERRLA, respirations even and unlabored to room air. Pulses x4 extremities equal and strong. Pedal pulses PT/DP X4 and marked. Cap fill brisk < 3 sec. Rt Tr band site no gross issues pain,pallor,pressure or dysrhythmia. Skin warm and dry integrity appears D/I IV 20g to left hand, presents healthy w/o s/s of infiltration or complaint. Set at 75hr for 500cc intake.Abdomen soft and supple. pt offered toileting, denies need to urinate or defecate. No personal affects with patient. Family at bedside. Pt and family verbalizes understanding of POC. Currently w/o complaint of pain or need.ds/rn
--- NOTE | 2019-07-11 10:45 | NUR ---
1045 RADIAL COMPRESSION REMOVAL NOTE: Initial Cuff volume 13 cc 1045a -xcc Removed No hematoma/bleeding noted with normal neurovascular function. 1100a -5cc Removed No hematoma/ bleeding noted with normal neurovascular function. 1115a -5cc Removed No hematoma/bleeding noted with normal neurovascular function. Air removal completed. Stasis achieved sterile 2x2,Tegaderm, Coban dressing No hematoma, bleeding noted with normal neurovascular function. Wrist splint in place. Pt instructed on POC. Ds/Rn
--- NOTE | 2019-07-11 11:45 | NUR ---
1145 Transported to [facility] stretcher with tele and RN escort. Handoff completed to Leticia VAUGHAN report to tele-room [employer].Left pt in room with bed in low position,brakes on and call light at bedside Informed pt to call for assistance. No gross issues pain,pallor,pressure or dysrhythmia. NOrmal neuro vascular function.ds/rn
--- NOTE | 2019-07-11 11:56 | NUR ---
RECEIVED PATIENT FROM MANAGER OF PRODUCT. PATIENT A/O X3, EVEN RESPIRATIONS ON RA. LUNG SOUNDS CLEAR TO AUSCULTATION. RIGHT WRIST SUPPORT DEVICE IN PLACE. TELEMETRY #21 A FIB. NO PAIN AT THIS TIME. ORIENTED PATIENT TO ROOM AND CALL LIGHT. BED LOW, WHEELS LOCKED, SIDE RAILS X2. CALL LIGHT IN REACH WILL CONTINUE TO MONITOR PATIENT.
[2019-07-11] MEDS ORDERED: MORPHINE SULFATE INJ 4 MG/ML INJ 1ML IV PRN (15:30)
[2019-07-11] MEDS ORDERED: MORPHINE SULFATE 2 MG/ML SYR 1ML IV PRN (15:30)
[2019-07-11] MEDS: METOPROLOL TARTRATE 50 MG TAB PO SCH (16:44)
[2019-07-11] MEDS ORDERED: WARFARIN SOD 5 MG TAB PO SCH (17:00)
--- NOTE | 2019-07-11 19:00 | NUR ---
RECEIVED REPORT FROM [facility] NURSE. AAOX3. R HEART CATH PRESSURE DRESSING PRESENT. NO ACTIVE BLEEDING. L HAND 20G IV SALINE LOCK. NO SIGNS OF INFILTRATION. RESTING IN CHAIR. CALL LIGHT WITHIN REACH. BED LOCKED AND IN LOW POSITION.
[2019-07-12] VITALS: BP 125/82
[2019-07-12 04:00] VITALS: BP 113/72
--- NOTE | 2019-07-12 07:00 | NUR ---
RECEIVED PATIENT AWAKE RESTING IN BED NO S/S OF DISTRESS. BED LOW, WHEELS LOCKED, SIDE RAILS X2. CALL LIGHT IN REACH WILL CONTINUE TO MONITOR PATIENT.
--- NOTE | 2019-07-12 07:42 | NUR ---
REPORT GIVEN TO [facility] NURSE. RESTING IN BED. R WRIST HEART CATH PRESSURE DRESSING WITH NO ADVERSE SIGNS. L HAND 20G SALINE LOCK. NO SIGNS OF INFILTRATION. BED LOCKED AND IN LOW POSITION. CALL LIGHT WITHIN REACH. Addendum: 07/12/19 at 0747 by Trinh Hood RN PLEASE INCLUDE: AAOX3.
[2019-07-12 08:00] VITALS: BP 136/82
[2019-07-12] MEDS: METOPROLOL TARTRATE 50 MG TAB PO SCH (08:18)
[2019-07-12 08:45] VITALS: BP 136/82
[2019-07-12] MEDS ORDERED: CLOPIDOGREL BISULFATE 75 MG TAB PO SCH (09:00)
[2019-07-12] MEDS ORDERED: ASPIRIN 81 MG CHEW TAB PO SCH (09:00)
[2019-07-12] MEDS ORDERED: OLMESARTAN 20 MG TAB PO SCH (09:00)
[2019-07-12] MEDS ORDERED: SIMVASTATIN 40 MG TAB PO SCH (09:00)
[2019-07-12] MEDS ORDERED: LEVOTHYROXINE SODIUM 88 MCG TAB PO SCH (09:00)
[2019-07-12] MEDS ORDERED: FUROSEMIDE 20 MG TAB PO SCH (09:00)
--- NOTE | 2019-07-12 09:21 | NUR ---
SPOKE JUAN PARISH TO DISCHARGE PATIENT. Addendum: 07/12/19 at 0939 by Bhavna Melo RN SPOKE WITH DR. SAHNTEL PARISH TO DISCHARGE PATIENT.
--- NOTE | 2019-07-12 09:30 | NUR ---
REMOVED PATIENTS IV. CATHETER TIP INTACT AND PRESSURE DRESSING APPLIED.
--- NOTE | 2019-07-12 09:56 | NUR ---
LIVES INDEPENDENTLY IN HOUSE W/ HER IN [place] [facility] CONTACT: : MIRIAM LEIVA [phone] PCP: DR. ALEJANDRO OLIVER EMPLOYED HOME HEALTH: NONE DME: NONE DC PLAN: RETURN HOME W/ , AND RETURN TO WORK.
--- NOTE | 2019-07-12 09:56 | NUR ---
DISCHARGING HOME WITH TODAY. NO NEEDS.
--- NOTE | 2019-07-12 09:58 | NUR ---
PATIENT DISCHARGED FROM FACILITY. PATIENT GATHERED ALL PERSONAL BELONGINGS, DISCHARGE INSTRUCTIONS, AND F/U INFORMATION. PATIENT LEFT UNIT IN WHEELCHAIR AND WENT HOME VIA PRIVATE AUTO. NO S/S OF DISTRESS WHEN LEAVING FACILITY.
--- NOTE | 2019-09-10 14:00 | Operative Report ---
DATE OF PROCEDURE: SURGEON: Fred Thomason DO PROCEDURES PERFORMED: 1. Conscious sedation, 45 minutes. 2. Selective coronary angiography x2. 3. Left heart catheterization. 4. Percutaneous coronary intervention of the left circumflex coronary artery. 5. Percutaneous coronary intervention of the right coronary artery. PREPROCEDURE DIAGNOSIS: Abnormal stress test with decrease in left ventricular systolic function. POSTPROCEDURE DIAGNOSES: 1. Abnormal stress test with decrease in left ventricular systolic function. 2. Coronary artery disease. PROCEDURE DETAILS: After informed consent was obtained, the patient was brought to the cardiac catheterization laboratory in a fasting and nonsedated state. Bilateral groins and right wrist were prepped and draped in usual sterile fashion. The patient received fentanyl and midazolam, administered by the pathology lab technician staff and her neurologic and physiologic status was monitored by myself for 45 minutes along with the pathology lab technician staff. Next, diagnostic coronary angiography was performed and showed severe lesions in the left circumflex and right coronary arteries. Decision was made to intervene. The patient received systemic heparin for therapeutic anticoagulation. Next, the left main was cannulated with a 6-Belarusian XB LAD 3 guide. The lesion was crossed with a Runthrough wire and pre-dilated with a 2.5 mm balloon. Next, the lesion was stented with a 2.75 x 32 Synergy drug-eluting stent. Wire and guide were subsequently removed. Next, the right coronary artery was cannulated with 6-Belarusian JR4 guide catheter. Lesion was crossed with a Runthrough wire, pre-dilated with a 2.5 balloon, then the distal portion was stented with a 3.5 x 28 Synergy drug-eluting stent. Proximal portion was stented in an overlapping fashion with a 3.25 x 8 noncompliant balloon. The patient tolerated the procedure well with no immediate complications and was transferred to room in stable condition. PROCEDURAL FINDINGS: 1. Left main coronary artery is patent. 2. Left anterior descending coronary artery is patent. There is proximal course and has a mild mid myocardial bridge. 3. Left circumflex coronary has two tandem 70% lesions proximally. There are two obtuse marginal vessels distally with luminal irregularities. 4. Right coronary artery is a dominant vessel and provides posterior descending coronary artery. The mid portion of the RCA has two tandem 70% lesions. The distal RCA has a 30% to 40% non-flow limiting stenosis. 5. Left ventricular end-diastolic pressure is 15 mmHg. 6. Left ventriculography showed an ejection fraction of 35% to 40%. IMPRESSION: Coronary artery disease. RECOMMENDATIONS: Continue dual antiplatelet therapy. DO ERIBERTO Santillan/JUNGL /[id number]
== END 2019-07-12 10:01 | disposition home or self-care (01) ==
LOC: CATH LAB 06:27 → CATH LAB V 09:30 → MED/SURG 13:13
PROVIDERS: ADMIT Internal Medicine Cardiovascular Disease; ATTEND Internal Medicine Cardiovascular Disease
DX: I25.10 Atherosclerotic heart disease of native coronary artery without angina pectoris (principal); I10 Essential (primary) hypertension; Z01.812 Encounter for preprocedural laboratory examination
CPT/HCPCS: 36415; 76937; 80053; 85025; 85610; 92928 ×2; 93458; C1725 ×3; C1769; C1874 ×2; C1887; G0378 ×2; J1644; J2001; J2250; J3010; J7030; Q9967; 92929; 99152; 99153

== ENCOUNTER → 2020-03-11 | Day surgery (SDC) | payer OTHER ==
[2020-03-08 10:39] LABS: BASOPHILS % 0.6 % (0.0-1.0); EOSINOPHILS # (AUTO) 0.1 (0.0-0.4); EOSINOPHILS % 2.2 % (0.0-6.0); HEMATOCRIT 33.7 % (34.2-44.1); HEMOGLOBIN 10.8 g/dL (12.0-16.0); LYMPHOCYTES # (AUTO) 1.4 (1.0-3.2); LYMPHOCYTES % 29.4 % (18.0-39.1); MEAN CORPUSCULAR HEMOGLOBIN 28.9 pg (28-32); MEAN CORPUSCULAR VOLUME 90.1 fL (81-99); MONOCYTES # (AUTO) 0.6 (0.2-0.8); MONOCYTES % 12.2 % (4.4-11.3); NEUTROPHILS # (AUTO) 2.7 (2.1-6.9); NEUTROPHILS % 55.4 % (38.7-80.0); PLATELET COUNT 189 x10e3/uL (140-360); RED BLOOD COUNT 3.74 x10e6/uL (3.6-5.1); RED CELL DISTRIBUTION WIDTH 12.9 % (11.7-14.4)
[2020-03-08 11:04] LABS: ALANINE AMINOTRANSFERASE 16 IU/L (0-55); ALBUMIN 3.8 g/dL (3.5-5.0); ALBUMIN/GLOBULIN RATIO 1.1 (0.8-2.0); ALKALINE PHOSPHATASE 48 IU/L (40-150); ANION GAP 9.8 mmol/L (8-16); BLOOD UREA NITROGEN 16 mg/dL (7-26); BUN/CREATININE RATIO 22 (6-25); CARBON DIOXIDE 30 mmol/L (22-29); CHLORIDE 104 mmol/L (98-107); CREATININE, SERUM 0.74 mg/dL (0.57-1.11); EST GLOMERULAR FILTRATION RATE > 60 ML/MIN (60-); GLUCOSE 102 mg/dL (74-118); INR 3.35; POTASSIUM 3.8 mmol/L (3.5-5.1); PROTHROMBIN TIME 35.5 seconds (11.9-14.5); SODIUM 140 mmol/L (136-145)
[~2020-03-11] VITALS: Ht 167.6 cm; Wt 74.8 kg
[~2020-03-11] MED LIST changes: +BENZOCAINE 20% SPR 60 ML CAN ONE; +CLOPIDOGREL75 MG PO; +FENTANYL CITRATE/PF 100MCG/2 ML INJ ONE; +LIDOCAINE HCL 2% LOCAL INJ 5 ML SDV VIAL INJ ONE; +METOPROLOL SUCC50 MG PO; +MIDAZOLAM HCL 2 MG/2 ML VIAL ONE; +PROPOFOL IV EMULSION 10 MG/ML 20 ML VIAL ONE; +SODIUM CHLORIDE 0.9% 1000ML 1,000 ML ONE; +WARFARIN SODIUM5 MG PO
[2020-03-11 09:50] VITALS: BP 118/63
[2020-03-11 12:07] VITALS: BP 93/67
[2020-03-11 12:15] VITALS: BP 100/50
[2020-03-11 12:30] VITALS: BP 116/67
[2020-03-11 12:45] VITALS: BP 110/67
== END | disposition home or self-care (01) ==
LOC: CATH LAB 09:22
PROVIDERS: ATTEND Internal Medicine Cardiovascular Disease
DX: I48.91 Unspecified atrial fibrillation (principal); I34.0 Nonrheumatic mitral (valve) insufficiency; Z95.818 Presence of other cardiac implants and grafts; I11.0 Hypertensive heart disease with heart failure; I25.10 Atherosclerotic heart disease of native coronary artery without angina pectoris; D64.9 Anemia, unspecified; I50.22 Chronic systolic (congestive) heart failure; F41.9 Anxiety disorder, unspecified; Z88.6 Allergy status to analgesic agent; Z88.2 Allergy status to sulfonamides; Z01.812 Encounter for preprocedural laboratory examination; Z20.828 Contact with and (suspected) exposure to other viral communicable diseases; Z79.01 Long term (current) use of anticoagulants; Z79.02 Long term (current) use of antithrombotics/antiplatelets; Z86.73 Personal history of transient ischemic attack (TIA), and cerebral infarction without residual deficits
CPT/HCPCS: 36415; 80053; 85025; 85610; 93307; 93325; J2001; J2250; J2704; J3010; J7030; U0002; 93312; 93320